=== PATIENT | male | born 1965 | race Caucasian/White ===

== ENCOUNTER 2025-04-28 07:49 | Emergency (ER) | payer BC, SELFPAY ==
[2025-04-28 07:53] VITALS: BP 176/104
[2025-04-28 08:23] VITALS: BMI 30.6
[2025-04-28 08:26] VITALS: BP 168/107
[2025-04-28] MEDS: NSS 1000 IV (08:35)
[2025-04-28] MEDS: TORADOL 15 MG IV (08:41)
[2025-04-28] MEDS: ZOFRAN 4 MG IV (08:41)
[2025-04-28 08:46] LABS: Hematocrit 43.6 % (39.0-52.0); Hemoglobin 16.0 g/dL (13.0-18.0); Mean Corp Hgb Conc. 36.7 g/dL (33.0-37.0); Mean Corpuscular Volume 80.1 fL (80.0-94.0); Nucleated Red Blood Cells % 0 % (-); Platelet Count 205 10^3/uL (130-400); Red Cell Dist. Width 12.4 % (11.5-14.5)
--- NOTE | 2025-04-28 08:56 | ED.GENMED ---
History of Present Illness
General
Chief Complaint: Abdominal Symptoms
Source: patient
Time Seen by Provider: 04/28/25 08:28
History of Present Illness
History of Present Illness:
60-year-old male with past medical history of hyperlipidemia presenting to the emergency department for a few days of upper respiratory symptoms including chest congestion with cough productive of a rust colored sputum followed by persistent nausea
vomiting and diarrhea over the last few days, having a difficult time tolerating both solids and liquids p.o., no reported fevers although does endorse some myalgias. No known sick contacts, recent travel or recent antibiotics. Patient endorses
some mild epigastric pain but no flank pain, urinary symptoms, chest pain, shortness of breath. He attempted some Robitussin but states after taking the Robitussin he would often vomit. Yesterday he was able to keep a little bit of yuly skyler and
water down.
Past History
Past History
ED Past Medical History: Hypercholesterolemia
ED Past Surgical History: None
Social History
Tobacco: Non-smoker
Alcohol: Occasional
Drug: None
Personal:
Living: with family
Review of Systems
Review of Systems
All Other Systems: ROS reviewed and negative except as documented in HPI and ROS
Phy Exam
Physical Exam
Physical Exam:
GENERAL: Alert , in no apparent distress
EYE: clear conjunctiva b/l
HEAD: NCAT
ENT: o/p clr, mmm.
CARDIAC: Regular rate and rhythm .
LUNGS: Clear breath sounds bilaterally, no acute respiratory distress, no wheezes/rales/rhonchi
ABDOMEN: Soft, mild epigastric tenderness, no r/g, no cvat
NEUROLOGICAL: Alert and oriented
SKIN: Warm and dry, skin intact.
MUSCULOSKELETAL: No edema, well perfused.
PSYCH: Normal and appropriate interaction.
Scores
Heart Failure Risk
Heart Failure Risk Score: Not Applicable
Heart Score for Chest Pain Patients
STEMI patient?: Not applicable
Withdrawal Assessment of Alcohol
Withdrawal Assessment Completed?: Not applicable
Course
Orders/Labs/Results
Orders:
Orders
04/28/25 08:33
COVID-19 Antigen Urgent
Source: Nasal Swab
Complete Blood Count/With Diff Urgent
Comprehensive Metabolic Panel Urgent
Lipase Stat
Influenza A+B Rapid Molecular Urgent
MTAHEW Source: Nasal Swab
Specimen Description:
04/28/25 08:34
0.9% Sodium Chloride 1000 ml [Nss] 1,000 ml IV BOLUS
04/28/25 08:38
Ketorolac [Toradol] 15 mg .ROUTE .STK-MED ONE
Ondansetron Injectable [Zofran] 4 mg .ROUTE .STK-MED ONE
04/28/25 08:40
Ondansetron Injectable [Zofran] 4 mg IV NOW STA
04/28/25 08:41
Ketorolac [Toradol] 15 mg IV NOW STA
04/28/25 09:05
CR Chest - 2 Views Urgent
Comment:
Reason For Exam: URI like symptoms
Abnormal Lab Results
04/28/25
08:33
Neutrophils % 76.3 H %
(42.2-75.2)
Lymphocytes % 15.3 L %
(20.5-51.1)
BUN 21 H mg/dl
(9-20)
Glucose 100 H mg/dl
(70-99)
Total Bilirubin 1.9 H mg/dl
(0.2-1.3)
Albumin 5.2 H g/dl
(3.5-5.0)
Lipase 573 H U/L
(23-300)
04/28/25 08:33
04/28/25 08:33
Vital Signs
Initial and Last Documented VS:
Initial Vital Signs
Temp Pulse Resp BP Pulse Ox
97.9 F 85 20 176/104 97
04/28/25 07:53 04/28/25 07:53 04/28/25 07:53 04/28/25 07:53 04/28/25 07:53
Last Documented Vital Signs
Temp Pulse Resp BP Pulse Ox
97.9 F 85 20 133/87 96
04/28/25 07:53 04/28/25 07:53 04/28/25 07:53 04/28/25 10:00 04/28/25 10:30
MDM/Problems Addressed
Differential Diagnosis Includes:
Flu
Covid
Gastroenteritis
Pneumonia
Electrolyte imbalance
Dehydration
Cholecystitis
MDM/Problems Addressed:
60 year old male presenting to the ER for evaluation of URI like symptoms followed by GI symptoms shortly thereafter. Hemodynamically stable and overall well appearing. Will check labs and CXR. NSS, toradol and zofran ordered
*Pulse Oximetry
SaO2: 95
Oxygen Mode of Delivery: Room air
Patient hypoxic: no
*Critical Care Note
Total Time (30-74mins, 75-104mins- exclusive of procedures): Not Applicable
Patient Management
Escalation/DeEscalation of care consider admission/obs:
Symptoms improved following fluids and medications. Patient's labs reassuring. Chest x-ray without any signs of pneumonia. Continue bland diet at home. Prescription for Zofran sent to pharmacy. Patient aware of return precautions to the ER.
ED Attending Note
-
Portions of this chart may have been created with voice recognition software.� Occasional wrong word or��sound alike� substitutions may have occurred due to the inherent limitations of voice recognition software.
Discharge Plan
Departure
Patient Disposition: Home (Routine Discharge)
Date of Disposition: 04/28/25
Time of Disposition: 10:08
Patient with high blood pressure during this ER visit?: Yes
Discharge Problem:
Nausea, vomiting, and diarrhea, URI (upper respiratory infection)
Instructions: Nausea and Vomiting, Adult (DC)
Prescriptions:
New
ondansetron 4 mg tablet,disintegrating
4 mg PO TIDPRN PRN (Reason: nausea/vomiting) Qty: 10 0RF
Referrals:
Horacio Juan, DO [Family Provider, Family Practice]
Interventions
Interventions:
*Risk Screen - Suicide Last Done: 04/28/25 07:53
*General Assessment Last Done: 04/28/25 07:53
*Neglect/Abuse Screening Last Done: 04/28/25 08:23
*ED- Fall Risk Assessment Last Done: 04/28/25 08:23
*ED COVID-19 Vaccine History Last Done: 04/28/25 07:53
*ED Influenza Vaccine History Last Done: 04/28/25 07:53
*Nursing Disposition Last Done: 04/28/25 10:14
AU-Ayhoem-Cvfrlhlggy Assessment Last Done: 04/28/25 08:23
Discharge Date and Time
Discharge Date/Time: 04/28/25 10:51
Print Language: TRINIDADIAN
[2025-04-28 09:00] VITALS: BP 164/108
[2025-04-28 09:00] LABS: COVID-19 Antigen Negative (Negative)
[2025-04-28 09:02] LABS: Lipase 573 U/L (23-300)
[2025-04-28 09:04] LABS: ALT (SGPT) 40 U/L (0-50); AST (SGOT) 40 U/L (17-59); Albumin 5.2 g/dl (3.5-5.0); Alkaline Phosphatase 70 U/L (38-126); Blood Urea Nitrogen 21 mg/dl (9-20); Calcium 10.0 mg/dl (8.4-10.2); Carbon Dioxide 23 mmol/L (22-30); Chloride 101 mmol/L (98-107); Estimated Creatinine Clearance 74 ml/min; Glucose 100 mg/dl (70-99); Potassium 3.9 mmol/L (3.5-5.1); Sodium 136 mmol/L (135-145); Total Protein 8.1 g/dl (6.3-8.2); eGFR > 60.00
[2025-04-28 09:58] VITALS: BP 130/84
[2025-04-28 10:00] VITALS: BP 133/87
== END 2025-04-28 10:51 | disposition home or self-care (01) ==
LOC: EMR 07:49
PROVIDERS: EMERGENCY PHYSICIAN Emergency Medicine; FAMILY PHYSICIAN Family Medicine
DX: J06.9 Acute upper respiratory infection, unspecified (principal); R11.2 Nausea with vomiting, unspecified; R19.7 Diarrhea, unspecified; R10.13 Epigastric pain; Z11.52 Encounter for screening for COVID-19; R03.0 Elevated blood-pressure reading, without diagnosis of hypertension; E78.00 Pure hypercholesterolemia, unspecified
CPT/HCPCS: 99284; 96374; 96375; 96361; 71046; 80053; 83690; 85025; 87502; 87811